=== PATIENT | female | born 2000 | race Caucasian/White ===

== ENCOUNTER 2018-07-14 23:06 | Emergency (ER) | payer OTHER ==
[2018-07-14 23:14] VITALS: BP 123/88
--- NOTE | 2018-07-14 23:29 | ED Physician Documentation ---
PD HPI HEENT - Stated complaint Stated Complaint: R/L EAR AND WRIST PAIN - Chief complaint Chief Complaint: Heent - History obtained from History obtained from: Patient - History of Present Illness Timing - onset: How many hours ago, How many days ago (7) Timing - duration: Days (7) Timing - details: Gradual onset Pain level max: 4 Pain level now: 4 Severity Comments: Moderate Location: Right ear, Left ear Improves: No: Medication, Heat Worsens: No: Swalllowing, Noise Associated symptoms: No: Fever, Congestion, Rhinorrhea Review of Systems Ten Systems: 10 systems reviewed and negative Constitutional: reports: Reviewed and negative Eyes: reports: Reviewed and negative Ears: reports: Reviewed and negative Nose: reports: Reviewed and negative Throat: reports: Reviewed and negative Cardiac: reports: Reviewed and negative Respiratory: reports: Reviewed and negative GI: reports: Reviewed and negative : reports: Reviewed and negative Skin: reports: Reviewed and negative Musculoskeletal: reports: Reviewed and negative Neurologic: reports: Reviewed and negative Psychiatric: reports: Reviewed and negative Endocrine: reports: Reviewed and negative Immunocompromised: reports: Reviewed and negative PD PAST MEDICAL HISTORY - Past Medical History Past Medical History: No Other Past Medical History: Reviewed and not pertinent reviewed and not pertinent - Past Surgical History Past Surgical History: No Other past surgical history: Reviewed and not pertinent - Present Medications Home Medications: Ambulatory Orders Medication Instructions Recorded Confirmed Cetirizine HCl/Pseudoephedrine 1 each PO BID #60 tab.er.12h 07/14/18 [Zyrtec-D Tablet] Fluticasone [Flonase] 1 sprays NAHUM BID #1 bottle 07/14/18 Ibuprofen 800 mg PO TID #60 tablet 07/14/18 - Allergies Allergies/Adverse Reactions: Allergies Allergy/AdvReac Type Severity Reaction Status Date / Time No Known Drug Allergies Allergy Verified 07/14/18 23:14 - Living Situation Living Situation: reports: With family Living Arrangement: reports: At home - Social History Does the pt smoke?: No Smoking Status: Never smoker Does the pt drink ETOH?: No Does the pt have substance abuse?: No - Family History Family history: reports: Other (Reviewed and not pertinent) - Immunizations Immunizations are current?: Yes PD ED PE NORMAL - Vitals Vital signs reviewed: Yes - General General: Alert and oriented X 3, No acute distress - HEENT HEENT: PERRL - Neck Neck: Supple, no meningeal sign - Cardiac Cardiac: RRR, No murmur - Respiratory Respiratory: Clear bilaterally - Abdomen Abdomen: Normal bowel sounds, Soft, Non tender, Non distended - Derm Derm: Warm and dry - Extremities Extremities: No deformity, Other (Positive Tinel sign) - Neuro Neuro: Alert and oriented X 3 - Psych Psych: Normal mood, Normal affect Results - Vitals Vitals: Vital Signs - 24 hr 07/14/18 23:11 Temperature 36.3 C L Heart Rate 75 Respiratory 18 Rate Blood Pressure 123/88 H O2 Saturation 100 Oxygen O2 Source Room air PD MEDICAL DECISION MAKING - ED course Complexity details: re-evaluated patient, considered differential, d/w patient ED course: 17-year-old female with carpal tunnel syndrome and seasonal allergies.Discharge with prescription for Sudafed D, Flonase, ibuprofen. Departure - Departure Disposition: 01 Home, Self Care Clinical Impression: Seasonal allergies Carpal tunnel syndrome Qualifiers: Laterality: bilateral Qualified Code(s): G56.03 - Carpal tunnel syndrome, bilateral upper limbs Condition: Good Instructions: Carpal Tunnel Syndrome, ED Allergy Seasonal Follow-Up: Your, PCP [Other] Prescriptions: Cetirizine HCl/Pseudoephedrine [Zyrtec-D Tablet] 1 each PO BID #60 tab.er.12h Fluticasone [Flonase] 1 sprays NAHUM BID #1 bottle Ibuprofen 800 mg PO TID #60 tablet Discharge Date/Time: 07/14/18 23:41
== END 2018-07-14 23:41 | disposition home or self-care (01) ==
LOC: ED 23:06
DX: J30.2 Other seasonal allergic rhinitis (principal); G56.03 Carpal tunnel syndrome, bilateral upper limbs
CPT/HCPCS: 99283